=== PATIENT | male | born 1965 | race Caucasian/White ===

== ENCOUNTER 2020-01-07 15:16 | Emergency (ER) | payer OTHER ==
[~2020-01-07] VITALS: Ht 177.8 cm; Wt 95.3 kg
[2020-01-07] MEDS ORDERED: CLON0.5T4 PO (15:32)
[2020-01-07] MEDS ORDERED: LURA20TA PO (15:32)
--- NOTE | 2020-01-07 15:33 | NUR ---
Dr Sorensen at the bedside for eval.
[2020-01-07] MEDS ORDERED: CLONAZEPAM 0.5 MG TABLET PO ONE (15:45)
[2020-01-07] MEDS ORDERED: CLONAZEPAM 0.5 MG TABLET ONE (15:52)
--- NOTE | 2020-01-07 15:58 | NUR ---
Patient discharged to home in stable condition. Written and verbal after care instructions given. Patient verbalizes understanding of instructions. Stressed follow up or return to ER for worsening s/s.
[2020-01-07 15:59] VITALS: BP 150/86
== END 2020-01-07 16:00 | disposition home or self-care (01) ==
LOC: ER 15:17
DX: Z76.0 Encounter for issue of repeat prescription (principal); F20.9 Schizophrenia, unspecified; F31.9 Bipolar disorder, unspecified; F43.10 Post-traumatic stress disorder, unspecified; R03.0 Elevated blood-pressure reading, without diagnosis of hypertension
CPT/HCPCS: A4663

== ENCOUNTER 2020-03-10 16:20 | Emergency (ER) | payer OTHER ==
[~2020-03-10] VITALS: Ht 177.8 cm; Wt 95.3 kg
[~2020-03-10 16:20] MED LIST: CLON0.5T4 PO; LURA20TA PO
--- NOTE | 2020-03-10 16:32 | NUR ---
needs medication refill for ativan 1mg.
--- NOTE | 2020-03-10 16:38 | NUR ---
Gave pt RX and d/c instructions, pt verbalized understanding.
== END 2020-03-10 16:39 | disposition home or self-care (01) ==
LOC: ER 16:21
DX: Z76.0 Encounter for issue of repeat prescription (principal); F41.9 Anxiety disorder, unspecified; F31.9 Bipolar disorder, unspecified; F20.9 Schizophrenia, unspecified; F43.10 Post-traumatic stress disorder, unspecified; Z79.899 Other long term (current) drug therapy
CPT/HCPCS: A4663

== ENCOUNTER 2020-03-18 12:06 | Emergency (ER) | payer OTHER ==
[~2020-03-18] VITALS: Ht 177.8 cm; Wt 102.1 kg
[2020-03-18] MEDS ORDERED: CLONAZEPAM 1 MG TABLET PO STA (12:26)
[2020-03-18] MEDS ORDERED: CLONAZEPAM 1 MG TABLET ONE (12:42)
== END 2020-03-18 12:44 | disposition home or self-care (01) ==
LOC: ER 12:06
DX: F41.9 Anxiety disorder, unspecified (principal); Z76.0 Encounter for issue of repeat prescription; Z59.0 Homelessness; F31.9 Bipolar disorder, unspecified; F20.9 Schizophrenia, unspecified; Z72.0 Tobacco use
CPT/HCPCS: A4663

== ENCOUNTER 2020-04-05 15:40 | Emergency (ER) | payer OTHER ==
[~2020-04-05] VITALS: Ht 177.8 cm; Wt 102.1 kg
--- NOTE | 2020-04-05 15:47 | NUR ---
Patient presents to ER for c/o of tooth pain since a tooth extraction in 1997. Placed in RM 4A, NAD noted. Noted multiple cavities and poor dentition. Pt also requesting ativan refill. Pt in no acute distress. Awaiting MD anton.
--- NOTE | 2020-04-05 16:03 | NUR ---
Per Dr. Campa patient is safe to discharge. Pt teaching effective, verbalized understanding. Pt left with steady gait.
== END 2020-04-05 16:07 | disposition home or self-care (01) ==
LOC: ER 15:41
DX: K08.89 Other specified disorders of teeth and supporting structures (principal); F41.9 Anxiety disorder, unspecified; Z76.0 Encounter for issue of repeat prescription; F17.200 Nicotine dependence, unspecified, uncomplicated; F20.9 Schizophrenia, unspecified; F31.9 Bipolar disorder, unspecified; Z79.899 Other long term (current) drug therapy
CPT/HCPCS: A4663

== ENCOUNTER 2020-04-13 13:19 | Emergency (ER) | payer OTHER ==
[~2020-04-13] VITALS: Ht 182.9 cm; Wt 108.9 kg
[2020-04-13] MEDS ORDERED: LORAZEPAM 0.5 MG TABLET ONE (13:41)
[2020-04-13] MEDS ORDERED: LORAZEPAM 0.5 MG TABLET PO ONE (13:45)
--- NOTE | 2020-04-13 13:46 | NUR ---
Patient was given written and verbal discharge instructions. Patient verbalized understanding and compliance of instructions. Patient ambulated with brisk steady gait. Patient refused offer of alf placement@this time. Patient was also given a packet & list of available shelters & mental health clinics in the surrounding area.
== END 2020-04-13 13:46 | disposition home or self-care (01) ==
LOC: ER 13:19
DX: F41.9 Anxiety disorder, unspecified (principal); Z76.0 Encounter for issue of repeat prescription; F13.20 Sedative, hypnotic or anxiolytic dependence, uncomplicated; F31.9 Bipolar disorder, unspecified; F20.9 Schizophrenia, unspecified; F17.200 Nicotine dependence, unspecified, uncomplicated; Z59.0 Homelessness; F43.10 Post-traumatic stress disorder, unspecified; Z86.69 Personal history of other diseases of the nervous system and sense organs
CPT/HCPCS: A4663

== ENCOUNTER 2020-05-05 16:35 | Emergency (ER) | payer OTHER ==
[~2020-05-05] VITALS: Ht 177.8 cm; Wt 104.3 kg
[2020-05-05] MEDS ORDERED: CLON0.5T PO (17:02)
--- NOTE | 2020-05-05 17:02 | NUR ---
Patient discharged to home in stable condition. Written and verbal after care instructions given. Patient verbalizes understanding of instructions. Stressed follow up or return to ER for worsening s/s.PT WALKS IN STEADY GAIT.
[2020-05-05] MEDS ORDERED: CLON1TAB PO (17:05)
--- NOTE | 2020-05-05 17:10 | NUR ---
Patient given written and verbal discharge instructions. Patient verbalizes understanding of instructions. Patient is ambulatory with steady gait. Refuses offer of senior living placement. Patient given list of available shelters in surrounding area.PT WALKS IN STEADY GAIT.
== END 2020-05-05 17:10 | disposition home or self-care (01) ==
LOC: ER 16:38
DX: F41.9 Anxiety disorder, unspecified (principal); Z76.0 Encounter for issue of repeat prescription; F20.9 Schizophrenia, unspecified; F31.9 Bipolar disorder, unspecified; Z79.899 Other long term (current) drug therapy; F13.20 Sedative, hypnotic or anxiolytic dependence, uncomplicated
CPT/HCPCS: A4663

== ENCOUNTER 2020-06-02 07:30 | Emergency (ER) | payer SELFPAY ==
[~2020-06-02 07:30] MED LIST changes: +CLON1TAB PO
== END 2020-06-02 07:36 | disposition left against medical advice (07) ==
LOC: ER 07:30
DX: Z53.21 Procedure and treatment not carried out due to patient leaving prior to being seen by health care provider (principal)

== ENCOUNTER 2020-09-28 15:24 | Emergency (ER) | payer OTHER ==
[~2020-09-28] VITALS: Ht 177.8 cm; Wt 104.3 kg
[2020-09-28] MEDS: CLONAZEPAM 0.5 MG TABLET PO ONE (16:52)
--- NOTE | 2020-09-28 16:53 | NUR ---
PT WAS EVALUATED BY DR LYN. PT WAS D/C'd TO HOME. D/C INSTRUCTIONS GIVEN TO THE PT BY DR LYN.
[2020-09-28 16:54] VITALS: BP 137/88
[2020-09-28] MEDS ORDERED: CLONAZEPAM 0.5 MG TABLET ONE (16:55)
== END 2020-09-28 16:55 | disposition home or self-care (01) ==
LOC: ER 15:24
DX: F41.9 Anxiety disorder, unspecified (principal); Z76.0 Encounter for issue of repeat prescription; F31.9 Bipolar disorder, unspecified; F20.9 Schizophrenia, unspecified; F13.20 Sedative, hypnotic or anxiolytic dependence, uncomplicated; Z59.0 Homelessness
CPT/HCPCS: A4663

== ENCOUNTER 2020-12-07 14:10 | Emergency (ER) | payer OTHER ==
[~2020-12-07] VITALS: Ht 177.8 cm; Wt 104.3 kg
[2020-12-07] MEDS ORDERED: CLON1TAB PO (14:20)
[2020-12-07] MEDS ORDERED: CLONAZEPAM 0.5 MG TABLET PO ONE (14:30)
--- NOTE | 2020-12-07 14:37 | NUR ---
Patient discharged to home in stable condition. Written and verbal after care instructions given. Patient verbalizes understanding of instructions. Stressed follow up or return to ER for worsening s/s.pt not driving
[2020-12-07] MEDS ORDERED: CLONAZEPAM 0.5 MG TABLET ONE (14:43)
== END 2020-12-07 14:43 | disposition home or self-care (01) ==
LOC: ER 14:10
DX: F41.9 Anxiety disorder, unspecified (principal); F13.20 Sedative, hypnotic or anxiolytic dependence, uncomplicated; Z76.0 Encounter for issue of repeat prescription; F20.9 Schizophrenia, unspecified; F31.9 Bipolar disorder, unspecified; Z59.00 Homelessness unspecified
CPT/HCPCS: A4663

== ENCOUNTER 2020-12-12 14:45 | Emergency (ER) | payer OTHER ==
[~2020-12-12] VITALS: Ht 177.8 cm; Wt 104.3 kg
[2020-12-12] MEDS ORDERED: CLON1TAB PO (15:07)
[2020-12-12] MEDS ORDERED: CLONAZEPAM 0.5 MG TABLET PO ONE (15:15)
--- NOTE | 2020-12-12 15:17 | NUR ---
Patient discharged to home in stable condition. Written and verbal after care instructions given. Patient verbalizes understanding of instructions. Stressed follow up or return to ER for worsening s/s.pt denies to be home less.
[2020-12-12] MEDS ORDERED: CLONAZEPAM 1 MG TABLET ONE (15:22)
== END 2020-12-12 15:18 | disposition home or self-care (01) ==
LOC: ER 14:45
DX: F41.9 Anxiety disorder, unspecified (principal); Z76.0 Encounter for issue of repeat prescription; F31.9 Bipolar disorder, unspecified; F20.9 Schizophrenia, unspecified; Z79.899 Other long term (current) drug therapy
CPT/HCPCS: A4663

== ENCOUNTER 2021-01-21 12:09 | Emergency (ER) | payer OTHER ==
[~2021-01-21] VITALS: Ht 177.8 cm; Wt 104.3 kg
[2021-01-21 12:39] LABS: HEMATOCRIT 39.2 % (36.7-47.1); MEAN CORPUSCULAR HEMOGLOBIN 30.1 uug (23.8-33.4); MEAN CORPUSCULAR VOLUME 89.3 fL (73.0-96.2); PLATELET COUNT (AUTO) 295 K/uL (152-348)
--- NOTE | 2021-01-21 12:40 | NUR ---
L/M for [facility] for PET eval.
[2021-01-21 12:41] LABS: CARBON DIOXIDE 28 mmol/L (21-32); CHLORIDE 101 mmol/L (98-107); CREATININE 0.9 mg/dL (0.6-1.3); GLUCOSE 113 mg/dL (74-106); POTASSIUM 3.8 mmol/L (3.5-5.1); UREA NITROGEN, BLOOD 12 mg/dL (7-18)
[2021-01-21 12:46] LABS: ETHANOL < 3 MG/DL (0-0)
[2021-01-21 12:48] LABS: ALANINE AMINOTRANSFERASE 25 U/L (16-63); ALKALINE PHOSPHATASE 88 U/L (50-136); ASPARTATE AMINOTRANSFERASE 23 U/L (15-37); BILIRUBIN,DIRECT 0.1 mg/dL (0.0-0.2); BILIRUBIN,TOTAL 0.2 mg/dL (0.2-1.0); CREATINE KINASE, TOTAL 288 U/L (39-308); TOTAL PROTEIN, SERUM 7.5 g/dL (6.4-8.2)
[2021-01-21 12:49] LABS: ACETAMINOPHEN < 2.0 ug/mL (10-30)
[2021-01-21 12:51] LABS: *BILIRUBIN,URIN NEGATIVE (NEGATIVE); *BLOOD, URINE NEGATIVE (NEGATIVE); *CLARITY,URINE CLEAR (CLEAR); *COLOR,URINE YELLOW (YELLOW); *KETONES,URINE NEGATIVE (NEGATIVE); *UROBILINOGEN,URINE 0.2 E.U./dl (NORMAL); LEUKOCYTE ESTERASE ,URINE NEGATIVE (NEGATIVE); NITRITE, URINE NEGATIVE (NEGATIVE); UGLUCOSE NEGATIVE (NEGATIVE)
--- NOTE | 2021-01-21 13:00 | NUR ---
[facility] advises to get covid and call her when medically clear.
[2021-01-21 13:01] LABS: *AMPHETAMINE, URINE POSITIVE (NEGATIVE); *CANNABINOID, URINE POSITIVE (NEGATIVE); *COCCAINE, URINE NEGATIVE (NEGATIVE); *OPIATE, URINE NEGATIVE (NEGATIVE); *PHENCYCLIDINE SCREEN,URINE NEGATIVE (NEGATIVE)
--- NOTE | 2021-01-21 14:25 | NUR ---
[facility] advises she will be here in 1 hour.
--- NOTE | 2021-01-21 17:06 | NUR ---
Called [facility] to obtain her status. No answer -- l/m.
--- NOTE | 2021-01-21 17:13 | NUR ---
Pt had anxiety attack, picked up his bag and started walking towards the exit of his room. Pt was stopped and redirected to his bed w/o incident. Pt was speaking oddly, paranoid statements.
--- NOTE | 2021-01-21 17:29 | NUR ---
[facility] here in ER.
--- NOTE | 2021-01-21 18:11 | NUR ---
Gave pt dinner tray.
--- NOTE | 2021-01-21 18:24 | NUR ---
faxed report to [facility],
--- NOTE | 2021-01-21 18:50 | NUR ---
[facility] stated pt was not on hold, could leave if he wanted to. Faxed packet to [facility].
--- NOTE | 2021-01-21 19:10 | NUR ---
Pt walked out to leave, said he didn't want to stay or get admitted. Pt left his backpack, it was given to him just outside ER. Pt did not even want to wait for d/c instructions.
== END 2021-01-21 19:18 | disposition left against medical advice (07) ==
LOC: ER 12:11
DX: F15.10 Other stimulant abuse, uncomplicated (principal); F25.9 Schizoaffective disorder, unspecified; F13.20 Sedative, hypnotic or anxiolytic dependence, uncomplicated; Z20.822 Contact with and (suspected) exposure to COVID-19; Z53.29 Procedure and treatment not carried out because of patient's decision for other reasons
CPT/HCPCS: 36415; 85025; 93005; A4663; G0480